=== PATIENT | female | born 1965 | race Two or more races ===

== ENCOUNTER 2024-07-17 10:15 | Inpatient (IN) | payer OTHER ==
[~2024-07-17] VITALS: Ht 157.5 cm; Wt 59.0 kg
[2024-07-17 14:33] VITALS: BP 114/79
[2024-07-17] MEDS ORDERED: SYNTHROID (14:33)
[2024-08-16 06:31] LABS: HEMATOCRIT 38.5 % (36.0-45.00); HEMOGLOBIN 12.9 g/dL (12.0-15.00); MEAN CELL VOLUME 92.6 fL (80.00-100.00); MEAN CORPUSCULAR HEMOGLOBIN 31.1 pg (27.00-32.0); MEAN CORPUSCULAR HGB CONC 33.5 g/dl (32.0-36.0); PLATELET COUNT 164 K/uL (150-450); RED BLOOD COUNT 4.15 M/uL (4.00-6.00); RED CELL DISTRIBUTION WIDTH 14.9 % (11.5-14.5)
[2024-08-16 06:46] LABS: INR 0.99; PARTIAL THROMBOPLASTIN TIME 27.4 SECONDS (22.0-34.0); PROTHROMBIN TIME 10.8 SECONDS (9.0-11.5)
[2024-08-16 07:16] LABS: ALBUMIN 3.8 gm/dL (3.4-5.0); BILIRUBIN TOTAL 0.56 mg/dL (0.3-1.2); CALCIUM 10.2 mg/dL (8.5-10.1); CREATININE SERUM 1.98 mg/dL (0.55-1.02); GFR 26.07; GLOBULINA 3.7 G/DL (2.4-3.5); POTASSIUM 4.49 mEq/L (3.5-5.1); TOTAL PROTEIN 7.5 gm/dL (6.4-8.2)
[2024-08-16] MEDS ORDERED: CHLORHEXIDINE GLUCONATE 120 ML BOTTLE TOP ONE (11:15)
[2024-08-16] MEDS ORDERED: LIDOCAINE HCL 1%/EPINEPHRINE 20ML VIAL IJ ONE (11:15)
[2024-08-16] MEDS ORDERED: METRONIDAZOLE/SODIUM CHLORIDE 500 MG/100 ML PIGGYBACK IV ONE (11:15)
[2024-08-16] MEDS ORDERED: CEFTRIAXONE SODIUM 2,000 MG VIAL IV ONE (11:15)
[2024-08-16] MEDS ORDERED: BUPIVACAINE HCL 30 ML VIAL IJ ONE (11:15)
[2024-08-16] MEDS ORDERED: MORPHINE SULFATE 4 MG/ML CARTRIDGE IV PRN (13:30)
[2024-08-16] MEDS ORDERED: OxyCODONE HCL 5 MG TABLET (ROXICODONE) PO PRN (13:30)
[2024-08-16] MEDS ORDERED: ONDANSETRON HCL 2 MG/ML VIAL IV PRN (13:30)
[2024-08-16] MEDS ORDERED: RINGERS SOLUTION,LACTATED 1,000 ML IV SCH (13:30)
[2024-08-16 16:37] VITALS: BP 94/63; O2SAT 99
[2024-08-16] MEDS ORDERED: GABAPENTIN 300 MG CAPSULE PO SCH (17:00)
[2024-08-16] MEDS ORDERED: HYOSCYAMINE SULFATE 0.125 MG TAB.SUBL SL SCH (17:00)
[2024-08-16] MEDS ORDERED: METRONIDAZOLE/SODIUM CHLORIDE 500 MG/100 ML PIGGYBACK IV SCH (17:00)
[2024-08-16] MEDS ORDERED: LACTOBACILLUS ACIDOPHILUS 1 CAP CAP PO NR (17:00)
[2024-08-16] MEDS ORDERED: TAMSULOSIN HCL 0.4 MG CAP PO NR (17:00)
[2024-08-16] MEDS ORDERED: ACETAMINOPHEN 500 MG GEL..CAP PO SCH (18:00)
[2024-08-16] MEDS ORDERED: CIPROFLOXACIN IN 5 % DEXTROSE 400 MG/200 ML PIGGYBAG IV SCH (21:00)
[2024-08-16] MEDS ORDERED: FAMOTIDINE/PF 20 MG/2 ML VIAL IV PUSH SCH (21:00)
[2024-08-17] VITALS (15 sets, daily range): BP systolic 71–95; BP diastolic 39–68; O2SAT 93–100
[2024-08-17 04:31] LABS: HEMATOCRIT 29.8 % (36.0-45.00); MEAN CELL VOLUME 92.4 fL (80.00-100.00); MEAN CORPUSCULAR HGB CONC 33.6 g/dl (32.0-36.0); RED BLOOD COUNT 3.23 M/uL (4.00-6.00)
[2024-08-17 04:39] LABS: ALBUMIN 2.3 gm/dL (3.4-5.0); CALCIUM 8.1 mg/dL (8.5-10.1); CREATININE SERUM 2.15 mg/dL (0.55-1.02); GFR 23.71; MEAN CORPUSCULAR HEMOGLOBIN 30.9 pg (27.00-32.0); PHOSPHOROUS 5.3 mg/dL (2.5-4.9); POTASSIUM 4.51 mEq/L (3.5-5.1)
[2024-08-17 04:41] LABS: PLATELET COUNT 116 K/uL (150-450)
[2024-08-17 04:53] LABS: MAGNESIUM 1.3 mg/dL (1.8-2.4)
[2024-08-17] MEDS ORDERED: LEVOTHYROXINE SODIUM 125 MCG TABLET PO SCH (06:00)
[2024-08-17] MEDS ORDERED: MAGNESIUM SULFATE IN WATER 4 GM/100 ML PIGGYBACK IV STA (08:38)
[2024-08-17] MEDS ORDERED: RINGERS SOLUTION,LACTATED 1,000 ML IV ONE (08:45)
[2024-08-17] MEDS ORDERED: LACTOBACILLUS ACIDOPHILUS 1 CAP CAP PO SCH (09:00)
[2024-08-17] MEDS ORDERED: TAMSULOSIN HCL 0.4 MG CAP PO SCH (09:00)
[2024-08-17] MEDS ORDERED: PIPERACILLIN/TAZOBACTAM SODIUM 2.25 GM VIAL IV STA (09:38)
[2024-08-17] MEDS ORDERED: NOREPINEPHRINE BITARTRATE 8 MG in DEXTROSE 5 % IN WATER 250 ML IV SCH (09:45)
[2024-08-17] MEDS ORDERED: PIPERACILLIN/TAZOBACTAM SODIUM 2.25 GM VIAL IV SCH (14:00)
[2024-08-17] MEDS ORDERED: CIPROFLOXACIN IN 5 % DEXTROSE 400 MG/200 ML PIGGYBAG IV SCH (17:00)
[2024-08-17] MEDS ORDERED: ENOXAPARIN SODIUM 40 MG/0.4 ML SYRINGE SUBCUTANEO SCH (17:00)
[2024-08-18] VITALS (9 sets, daily range): BP systolic 93–105; BP diastolic 62–75; O2SAT 97–100
[2024-08-18] MEDS ORDERED: PIPERACILLIN/TAZOBACTAM SODIUM 2.25 GM VIAL IV SCH (08:00)
[2024-08-18] MEDS ORDERED: ENOXAPARIN SODIUM 40 MG/0.4 ML SYRINGE SUBCUTANEO SCH (09:00)
[2024-08-18] MEDS ORDERED: ENOXAPARIN SODIUM 30 MG/0.3 ML SYRINGE SUBCUTANEO SCH (09:00)
[2024-08-18 09:40] LABS: URINE APPEARANCE Turbid; URINE BACTERIA 83.2 uL (0.0-1933); URINE BILIRRUBIN Negative (NEGATIVE); URINE BLOOD Large; URINE COLOR Yellow; URINE EPITHELIAL CELLS 20.8 uL (0.0-38.8); URINE GLUCOSE Negative (NEGATIVE); URINE KETONE Negative (NEGATIVE); URINE LEUKOCYTE Moderate; URINE NITRATE Negative; URINE PROTEIN 30 (NEGATIVE); URINE RBC 628.9 uL (0.0-20.8); URINE UROBILINOGEN 0.2 E.U./dl; URINE WBC 234.1 uL (0.0-23.2)
[2024-08-18 09:58] LABS: URINE CAST 1.03 uL (0.0-1.40); URINE CRYSTALS FEW /HPF
[2024-08-18 17:17] LABS: HEMATOCRIT 37.9 % (36.0-45.00); HEMOGLOBIN 13.3 g/dL (12.0-15.00); MEAN CELL VOLUME 87.7 fL (80.00-100.00); MEAN CORPUSCULAR HEMOGLOBIN 30.7 pg (27.00-32.0); RED BLOOD COUNT 4.32 M/uL (4.00-6.00)
[2024-08-18 17:19] LABS: PLATELET COUNT 73 K/uL (150-450)
[2024-08-18 17:22] LABS: ERYTHROCYTE SEDIMENTATION RATE 14 mm/hr
[2024-08-18 17:44] LABS: ALBUMIN 2.3 gm/dL (3.4-5.0); BILIRUBIN TOTAL 2.86 mg/dL (0.3-1.2); CALCIUM 8.1 mg/dL (8.5-10.1); CREATININE SERUM 2.03 mg/dL (0.55-1.02); GFR 25.33; GLOBULINA 2.7 G/DL (2.4-3.5); MAGNESIUM 2.5 mg/dL (1.8-2.4); PHOSPHOROUS 3.3 mg/dL (2.5-4.9); POTASSIUM 3.89 mEq/L (3.5-5.1)
[2024-08-18 18:00] LABS: C-REACTIVE PROTEIN 14.3 MG/DL (0.00-0.29)
[2024-08-18] MEDS ORDERED: SODIUM CHLORIDE 0.45 % 1,000 ML IV SCH (21:00)
[2024-08-18] MEDS ORDERED: PANTOPRAZOLE SODIUM 40 MG/VIAL VIAL IV SCH (21:14)
[2024-08-19] VITALS (8 sets, daily range): BP systolic 102–128; BP diastolic 72–89; O2SAT 99–100
[2024-08-19 06:53] LABS: HEMOGLOBIN 13.8 g/dL (12.0-15.00); MEAN CELL VOLUME 87.9 fL (80.00-100.00); MEAN CORPUSCULAR HGB CONC 35.3 g/dl (32.0-36.0); RED BLOOD COUNT 4.44 M/uL (4.00-6.00); RED CELL DISTRIBUTION WIDTH 17.2 % (11.5-14.5)
[2024-08-19 07:10] LABS: PLATELET COUNT 70 K/uL (150-450)
[2024-08-19 07:12] LABS: ALBUMIN 2.3 gm/dL (3.4-5.0); BILIRUBIN TOTAL 1.32 mg/dL (0.3-1.2); CALCIUM 8.7 mg/dL (8.5-10.1); CREATININE SERUM 1.93 mg/dL (0.55-1.02); GFR 26.85; GLOBULINA 2.7 G/DL (2.4-3.5); POTASSIUM 3.98 mEq/L (3.5-5.1)
[2024-08-19 07:28] LABS: INR 1.2; PROTHROMBIN TIME 12.9 SECONDS (9.0-11.5)
[2024-08-19 11:33] LABS: PLATELET ESTIMATE DECREASED (NORMAL)
[2024-08-20 04:00] VITALS: BP 113/74; O2SAT 100
[2024-08-20 06:16] LABS: HEMATOCRIT 40.7 % (36.0-45.00); HEMOGLOBIN 14.2 g/dL (12.0-15.00); MEAN CELL VOLUME 87.7 fL (80.00-100.00); MEAN CORPUSCULAR HEMOGLOBIN 30.5 pg (27.00-32.0); MEAN CORPUSCULAR HGB CONC 34.8 g/dl (32.0-36.0); RED BLOOD COUNT 4.64 M/uL (4.00-6.00); RED CELL DISTRIBUTION WIDTH 16.7 % (11.5-14.5)
[2024-08-20 06:27] LABS: PLATELET COUNT 91 K/uL (150-450)
[2024-08-20 06:49] LABS: ALBUMIN 2.1 gm/dL (3.4-5.0); BILIRUBIN TOTAL 0.93 mg/dL (0.3-1.2); CALCIUM 8.3 mg/dL (8.5-10.1); CREATININE SERUM 1.7 mg/dL (0.55-1.02); GFR 31.09; GLOBULINA 2.6 G/DL (2.4-3.5); MAGNESIUM 2.1 mg/dL (1.8-2.4); POTASSIUM 3.72 mEq/L (3.5-5.1); TOTAL PROTEIN 4.7 gm/dL (6.4-8.2)
[2024-08-20 07:34] VITALS: BP 114/76; O2SAT 100
[2024-08-20 08:00] VITALS: BP 133/63; O2SAT 96
[2024-08-20 11:00] VITALS: BP 116/79; O2SAT 100
[2024-08-20 13:10] VITALS: BP 103/70; O2SAT 100
[2024-08-20] MEDS ORDERED: DIPHENHYDRAMINE HCL/ZINC ACET 28.3 GM CREAM.GM. TOP SCH (17:00)
[2024-08-20 18:25] VITALS: BP 103/78; O2SAT 96
[2024-08-21] VITALS: BP 112/77; O2SAT 98
[2024-08-21 10:02] VITALS: BP 108/73; O2SAT 98
[2024-08-21 16:00] VITALS: BP 104/73; O2SAT 97
[2024-08-21] MEDS ORDERED: HYDROPHIL PETROLAT TOP SCH (17:00)
[2024-08-21] MEDS ORDERED: HYDROCORTISONE TOP SCH (17:00)
[2024-08-21] MEDS ORDERED: MINERAL OIL TOP SCH (17:00)
[2024-08-21] MEDS ORDERED: METRONIDAZOLE/SODIUM CHLORIDE 500 MG/100 ML PIGGYBACK IV SCH (17:00)
[2024-08-21] MEDS ORDERED: DIPHENHYDRAMINE HCL 50 MG/ML VIAL 1ML IV SCH (21:00)
[2024-08-21] MEDS ORDERED: AZTREONAM 1,000 MG VIAL IV SCH (21:00)
[2024-08-22 00:20] VITALS: BP 102/65; O2SAT 98
[2024-08-22 08:00] VITALS: BP 100/63; O2SAT 98
[2024-08-22 08:53] LABS: HEMATOCRIT 39.6 % (36.0-45.00); HEMOGLOBIN 13.5 g/dL (12.0-15.00); MEAN CELL VOLUME 89.7 fL (80.00-100.00); MEAN CORPUSCULAR HEMOGLOBIN 30.5 pg (27.00-32.0); RED BLOOD COUNT 4.42 M/uL (4.00-6.00); RED CELL DISTRIBUTION WIDTH 16.2 % (11.5-14.5)
[2024-08-22 09:04] LABS: PLATELET COUNT 81 K/uL (150-450)
[2024-08-22 09:38] LABS: CALCIUM 7.9 mg/dL (8.5-10.1); CREATININE SERUM 1.11 mg/dL (0.55-1.02); GFR 50.85; MAGNESIUM 1.8 mg/dL (1.8-2.4); POTASSIUM 3.11 mEq/L (3.5-5.1)
[2024-08-22 09:47] LABS: PHOSPHOROUS 1.8 mg/dL (2.5-4.9)
[2024-08-22] MEDS ORDERED: POTASSIUM PHOS,M-BASIC-D-BASIC 3 MM/ML VIAL IV ONE (12:00)
[2024-08-22 16:00] VITALS: BP 106/72; O2SAT 98
[2024-08-22] MEDS ORDERED: RINGERS SOLUTION,LACTATED 1,000 ML IV SCH (16:45)
[2024-08-22] MEDS ORDERED: AZTREONAM 1,000 MG VIAL IV SCH (17:00)
[2024-08-23 01:35] VITALS: BP 98/54; O2SAT 95
[2024-08-23 08:00] VITALS: BP 106/64; O2SAT 99
[2024-08-23] MEDS ORDERED: PANTOPRAZOLE SODIUM 40 MG TABLET.DR PO SCH (09:00)
[2024-08-23] MEDS ORDERED: MAG HYDROX/ALUMINUM HYD/SIMETH 30 ML BLIST.PACK PO SCH (13:50)
[2024-08-23 16:00] VITALS: BP 111/69; O2SAT 95
[2024-08-23] MEDS ORDERED: NYSTATIN PO SCH (17:00)
[2024-08-23] MEDS ORDERED: ALUMINUM HYDROXIDE PO SCH (17:00)
[2024-08-23] MEDS ORDERED: LIDOCAINE HCL PO SCH (17:00)
[2024-08-23] MEDS ORDERED: CLOTRIMAZOLE 10 MG TROCHE MM SCH (17:00)
[2024-08-23] MEDS ORDERED: MAGNESIUM HYDROXIDE PO SCH (17:00)
[2024-08-23] MEDS ORDERED: [UNRECOGNIZED DRUG - OTHER] PO SCH (17:00)
[2024-08-23] MEDS ORDERED: SIMETHICONE PO SCH (17:00)
[2024-08-24 02:11] VITALS: BP 126/67; O2SAT 99
[2024-08-24 08:00] VITALS: BP 106/71; O2SAT 100
[2024-08-24 13:00] LABS: HEMATOCRIT 42.4 % (36.0-45.00); MEAN CELL VOLUME 89.6 fL (80.00-100.00); MEAN CORPUSCULAR HEMOGLOBIN 29.6 pg (27.00-32.0); PLATELET COUNT 138 K/uL (150-450); RED BLOOD COUNT 4.73 M/uL (4.00-6.00); RED CELL DISTRIBUTION WIDTH 16.2 % (11.5-14.5)
[2024-08-24 13:37] LABS: ALBUMIN 2.2 gm/dL (3.4-5.0); BILIRUBIN TOTAL 0.51 mg/dL (0.3-1.2); CREATININE SERUM 0.97 mg/dL (0.55-1.02); GFR 59.4; GLOBULINA 2.8 G/DL (2.4-3.5); MAGNESIUM 1.5 mg/dL (1.8-2.4); POTASSIUM 3.45 mEq/L (3.5-5.1)
[2024-08-24 13:44] LABS: ALBUMIN 2.2 gm/dL (3.4-5.0); BILIRUBIN TOTAL 0.52 mg/dL (0.3-1.2); CALCIUM 8.2 mg/dL (8.5-10.1); CREATININE SERUM 0.91 mg/dL (0.55-1.02); GFR 63.95; GLOBULINA 2.8 G/DL (2.4-3.5); POTASSIUM 3.46 mEq/L (3.5-5.1)
[2024-08-24 13:51] LABS: PHOSPHOROUS 1.5 mg/dL (2.5-4.9)
[2024-08-24 16:10] VITALS: BP 107/73; O2SAT 98
[2024-08-25 01:35] VITALS: BP 100/73; O2SAT 99
[2024-08-25] MEDS ORDERED: SODIUM CHLORIDE 0.45 % 1,000 ML IV SCH (07:15)
[2024-08-25 08:00] VITALS: BP 112/72; O2SAT 97
[2024-08-25] MEDS ORDERED: MAGNESIUM SULFATE IN WATER 50 ML IV NR (10:00)
[2024-08-25 16:44] VITALS: BP 105/65; O2SAT 100
[2024-08-26 02:23] VITALS: BP 101/56; O2SAT 97
[2024-08-26 08:00] VITALS: BP 101/68; O2SAT 97
[2024-08-26] MEDS ORDERED: DIBUCAINE 30 GM TUBE RECTAL SCH (09:00)
[2024-08-26 09:19] LABS: HEMATOCRIT 39.2 % (36.0-45.00); MEAN CELL VOLUME 90.2 fL (80.00-100.00); MEAN CORPUSCULAR HEMOGLOBIN 29.9 pg (27.00-32.0); MEAN CORPUSCULAR HGB CONC 33.1 g/dl (32.0-36.0); PLATELET COUNT 174 K/uL (150-450); RED BLOOD COUNT 4.34 M/uL (4.00-6.00); RED CELL DISTRIBUTION WIDTH 16.4 % (11.5-14.5)
[2024-08-26 10:26] LABS: ALBUMIN 1.8 gm/dL (3.4-5.0); BILIRUBIN TOTAL 0.5 mg/dL (0.3-1.2); CALCIUM 7.8 mg/dL (8.5-10.1); CREATININE SERUM 0.88 mg/dL (0.55-1.02); GFR 66.47; GLOBULINA 2.5 G/DL (2.4-3.5); POTASSIUM 3.43 mEq/L (3.5-5.1); TOTAL PROTEIN 4.3 gm/dL (6.4-8.2)
[2024-08-26] MEDS ORDERED: DIATRIZOATE MEGLUMINE, SODIUM 30 ML BOTTLE PO NR (10:28)
[2024-08-26 16:00] VITALS: BP 113/71; O2SAT 99
[2024-08-26] MEDS ORDERED: DEXTROSE 5 % IN WATER 1,000 ML IV SCH (16:15)
[2024-08-27 00:40] VITALS: BP 100/6; O2SAT 95
[2024-08-27 08:14] VITALS: BP 98/60; O2SAT 95
[2024-08-27 15:19] LABS: ALBUMIN 2.2 gm/dL (3.4-5.0); BILIRUBIN TOTAL 0.58 mg/dL (0.3-1.2); CALCIUM 8.3 mg/dL (8.5-10.1); CREATININE SERUM 0.98 mg/dL (0.55-1.02); GFR 58.71; MAGNESIUM 1.6 mg/dL (1.8-2.4); POTASSIUM 3.72 mEq/L (3.5-5.1); TOTAL PROTEIN 5.2 gm/dL (6.4-8.2)
[2024-08-27 16:00] VITALS: BP 100/70; O2SAT 96
[2024-08-28 00:12] VITALS: BP 95/66; O2SAT 95
[2024-08-28 00:14] VITALS: BP 95/64; O2SAT 95
[2024-08-28 08:00] VITALS: BP 88/61; O2SAT 96
[2024-08-28] MEDS ORDERED: MAGNESIUM SULFATE IN WATER 50 ML IV NR (10:00)
[2024-08-28 13:52] VITALS: BP 97/56; O2SAT 100
[2024-08-28] MEDS ORDERED: SYNTHROID125 MCG PO (14:25)
[2024-08-28] MEDS ORDERED: HYOSCYAMINE0.125 M1 SL (14:25)
[2024-08-28] MEDS ORDERED: INTESTINEX680 M1 PO (14:26)
[2024-08-28] MEDS ORDERED: TAMS0.4C PO (14:27)
[2024-08-28] MEDS ORDERED: TAMSULOSIN HCL 0.4 MG CAP PO NR (15:30)
[2024-08-28 16:00] VITALS: BP 99/68; O2SAT 94
== END 2024-08-28 20:14 | disposition home or self-care (01) | DRG 329 ==
LOC: OB/GYN 07-26 07:00 → O/R 08-16 06:15 → SURG 08-16 14:36 → ICU 08-17 18:52 → SURH 08-20 12:43
PROVIDERS: Internal Medicine; Internal Medicine Nephrology; ADMIT Surgery; ATTEND Surgery
PROC: 0DBP0ZZ Excision of Rectum, Open Approach (ICD-10-PCS; 2024-08-16)
PROC: 0DJD4ZZ Inspection of Lower Intestinal Tract, Percutaneous Endoscopic Approach (ICD-10-PCS; 2024-08-16)
PROC: 0DNW0ZZ Release Peritoneum, Open Approach (ICD-10-PCS; 2024-08-16)
PROC: 0DBU0ZZ Excision of Omentum, Open Approach (ICD-10-PCS; 2024-08-16)
PROC: 0WQF0ZZ Repair Abdominal Wall, Open Approach (ICD-10-PCS; 2024-08-16)
PROC: 0DBB0ZZ Excision of Ileum, Open Approach (ICD-10-PCS; 2024-08-16)
PROC: 0DB80ZZ Excision of Small Intestine, Open Approach (ICD-10-PCS; 2024-08-16)
PROC: 0DJD8ZZ Inspection of Lower Intestinal Tract, Via Natural or Artificial Opening Endoscopic (ICD-10-PCS; 2024-08-16)
PROC: 0DTN0ZZ Resection of Sigmoid Colon, Open Approach (ICD-10-PCS; principal; 2024-08-16 17:45)
PROC: 02HV33Z Insertion of Infusion Device into Superior Vena Cava, Percutaneous Approach (ICD-10-PCS; 2024-08-17)
PROC: 4A12X4Z Monitoring of Cardiac Electrical Activity, External Approach (ICD-10-PCS; 2024-08-17)
PROC: 30233N1 Transfusion of Nonautologous Red Blood Cells into Peripheral Vein, Percutaneous Approach (ICD-10-PCS; 2024-08-17)
PROC: 0TQB0ZZ Repair Bladder, Open Approach (ICD-10-PCS; 2024-08-23)
PROC: 0FC40ZZ Extirpation of Matter from Gallbladder, Open Approach (ICD-10-PCS; 2024-08-23)
PROC: BW21YZZ Computerized Tomography (CT Scan) of Abdomen and Pelvis using Other Contrast (ICD-10-PCS; 2024-08-26)
DX: K57.20 Diverticulitis of large intestine with perforation and abscess without bleeding (principal); T81.12XA Postprocedural septic shock, initial encounter; T81.19XA Other postprocedural shock, initial encounter; E87.0 Hyperosmolality and hypernatremia; N17.9 Acute kidney failure, unspecified; N32.1 Vesicointestinal fistula; T81.44XA Sepsis following a procedure, initial encounter; K66.0 Peritoneal adhesions (postprocedural) (postinfection); Z53.31 Laparoscopic surgical procedure converted to open procedure; I95.81 Postprocedural hypotension; D64.9 Anemia, unspecified; E03.9 Hypothyroidism, unspecified; I12.9 Hypertensive chronic kidney disease with stage 1 through stage 4 chronic kidney disease, or unspecified chronic kidney disease; N18.9 Chronic kidney disease, unspecified; D69.6 Thrombocytopenia, unspecified